=== PATIENT | female | born 1965 | race Asian ===

== ENCOUNTER 2017-11-27 12:57 | Outpatient (CLI) | payer BC | END 2017-11-27 12:58 | disposition home or self-care (01) | LOC: BICMAMMO 12:57 | PROVIDERS: ATTEND Internal Medicine | DX: Z12.31 Encounter for screening mammogram for malignant neoplasm of breast (principal); Z80.3 Family history of malignant neoplasm of breast | CPT/HCPCS: 77063; 77067 ==

== ENCOUNTER 2018-02-21 10:08 | Outpatient (CLI) | payer BC ==
--- NOTE | 2018-02-21 11:18 | BD ---
DEXA BONE DENSITOMETRY: (Dual energy X-ray Absorptiometry) DATE: 02/21/18 HISTORY: 52-year-old postmenopausal female for follow-up age-related osteoporosis screening examination. Age of menopause: 38 years. Weight: 115 lbs. Height: 65. COMPARISON: Most recent previous: 01/30/16. Baseline: 10/10/11. FINDINGS: The bone mineral density (BMD) is given in grams per square centimeter (g/cm2): LUMBAR SPINE: BMD(g/cm2) T-score Z-score L1: 0.695 -2.7 -1.9 L2: 0.726 -2.7 -1.9 L3: 0.736 -3.2 -2.2 L4: 0.699 -3.3 -2.4 Total: 0.714 -3.0 -2.1 Change in BMD compared to most recent previous DEXA: -8.7% Change in BMD compared to baseline DEXA: -0.9% HIP: Femoral neck: 0.652 -1.8 -0.9 Total: 0.780 -1.3 -0.8 Change in BMD compared to most recent previous DEXA: +2.5% Change in BMD compared to baseline DEXA: -2.9% FRAX WHO Fracture Risk Assessment Tool: 10 Year Fracture Risk * Major osteoporotic fracture: 2.7% Hip fracture: 0.3% Reported Risk Factors: [place](), Neck BMD=0.652, BMI=19.1 * Fracture probability is calculated for an untreated patient. Fracture probability may be lower if the patient has received treatment. IMPRESSION: 1. The mean bone mineral density of the lumbar spine is osteoporotic. Fracture risk is high. 2. The bone mineral density of the femoral neck is osteopenic. Fracture risk is increased. 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
== END 2018-02-21 10:09 | disposition home or self-care (01) ==
LOC: BICMAMMO 10:08
PROVIDERS: ATTEND Internal Medicine Rheumatology
DX: M81.0 Age-related osteoporosis without current pathological fracture (principal); M85.859 Other specified disorders of bone density and structure, unspecified thigh
CPT/HCPCS: 77080

== ENCOUNTER 2018-11-28 14:43 | Outpatient (CLI) | payer BC ==
--- NOTE | 2018-11-28 15:30 | MMO ---
Bilateral MAMMO Bilat Screen [facility]. CLINICAL HISTORY: Patient is 53 years old and is seen for screening. The patient has the following family history of breast cancer: maternal aunt. The patient has no personal history of cancer. VIEWS: The views performed were: bilateral craniocaudal with tomosynthesis and bilateral mediolateral oblique with tomosynthesis. FILMS COMPARED: The present examination has been compared to prior imaging studies performed at [facility] on 10/15/2013, 10/28/2015, 10/31/2016 and 11/27/2017. MAMMOGRAM FINDINGS: The breasts are heterogeneously dense, which could obscure a lesion on mammography. There are no suspicious masses, suspicious calcifications, or new areas of architectural distortion. IMPRESSION: THERE IS NO MAMMOGRAPHIC EVIDENCE OF MALIGNANCY. A ROUTINE FOLLOW-UP MAMMOGRAM IN 1 YEAR IS RECOMMENDED. THE RESULTS OF THIS EXAM WERE SENT TO THE PATIENT. ACR BI-RADS Category 1 - Negative MAMMOGRAPHY NOTE: 1. A negative mammogram report should not delay a biopsy if a dominant of clinically suspicious mass is present. 2. Approximately 10% to 15% of breast cancers are not detected by mammography. 3. Adenosis and dense breasts may obscure an underlying neoplasm. Reported by: EWA ZAVALA MD Electonically Signed: [id number]
== END 2018-11-28 14:44 | disposition home or self-care (01) ==
LOC: BICMAMMO 14:43
PROVIDERS: ATTEND Internal Medicine
DX: Z12.31 Encounter for screening mammogram for malignant neoplasm of breast (principal); Z80.3 Family history of malignant neoplasm of breast
CPT/HCPCS: 77063; 77067

== ENCOUNTER 2019-05-29 15:31 | Outpatient (CLI) | payer BC ==
--- NOTE | 2019-05-29 16:18 | BD ---
Exam: DEXA Bone Density 05/29/19 HISTORY: Postmenopausal screening for osteoporosis, osteoporosis. Lumbar Spine: BMD (g/cm2) T-SCORE Z-SCORE L1 0.759 -2.1 -1.2 L2 0.738 -2.6 -1.7 L3 0.782 -2.7 -1.7 L4 0.765 -2.7 -1.7 L1-L4 0.761 -2.6 -1.6 Femoral Neck: 0.682 -2.0 -1.0 Total Femur: 0.772 -1.4 -0.8 Impression: Osteoporosis. POS: [facility]
== END 2019-05-29 15:32 | disposition home or self-care (01) ==
LOC: BICMAMMO 15:31
PROVIDERS: ATTEND Internal Medicine Rheumatology
DX: M81.0 Age-related osteoporosis without current pathological fracture (principal)
CPT/HCPCS: 77080

== ENCOUNTER 2019-12-03 11:09 | Outpatient (CLI) | payer BC ==
--- NOTE | 2019-12-03 13:47 | MMO ---
Bilateral MAMMO Bilat Screen [facility]. CLINICAL HISTORY: Patient is 54 years old and is seen for screening. The patient has the following family history of breast cancer: maternal aunt. The patient has no personal history of cancer. VIEWS: The views performed were: bilateral craniocaudal with tomosynthesis and bilateral mediolateral oblique with tomosynthesis. FILMS COMPARED: The present examination has been compared to prior imaging studies performed at [facility] on 10/28/2015, 10/31/2016, 11/27/2017 and 11/28/2018. This study has been interpreted with the assistance of computer-aided detection. MAMMOGRAM FINDINGS: The breasts are heterogeneously dense, which could obscure a lesion on mammography. There are no suspicious masses, suspicious calcifications, or new areas of architectural distortion. IMPRESSION: THERE IS NO MAMMOGRAPHIC EVIDENCE OF MALIGNANCY. A ROUTINE FOLLOW-UP MAMMOGRAM IN 1 YEAR IS RECOMMENDED. THE RESULTS OF THIS EXAM WERE SENT TO THE PATIENT. ACR BI-RADS Category 1 - Negative MAMMOGRAPHY NOTE: 1. A negative mammogram report should not delay a biopsy if a dominant of clinically suspicious mass is present. 2. Approximately 10% to 15% of breast cancers are not detected by mammography. 3. Adenosis and dense breasts may obscure an underlying neoplasm. Reported by: YINKA ORELLANA MD Electonically Signed: [id number]
== END 2019-12-03 11:10 | disposition home or self-care (01) ==
LOC: BICMAMMO 11:09
PROVIDERS: ATTEND Internal Medicine
DX: Z12.31 Encounter for screening mammogram for malignant neoplasm of breast (principal); Z80.3 Family history of malignant neoplasm of breast
CPT/HCPCS: 77063; 77067

== ENCOUNTER 2020-07-13 10:07 | Outpatient (CLI) | payer BC ==
--- NOTE | 2020-07-13 12:41 | BD ---
EXAM: DEXA bone density examination HISTORY: 54-year-old postmenopausal female for screening COMPARISON: 05/29/2019 FINDINGS: L1--bone mineral density 0.768 g/sq cm; T score -2.0 L2--bone mineral density 0.739 g/sq cm; T score -2.6 L3--bone mineral density 0.754 g/sq cm; T score -3.0 L4--bone mineral density 0.810 g/sq cm; T score -2.3 Total L1-L4--bone mineral density 0.767 g/sq cm; T score -2.5 Left femoral neck--bone mineral density0.657; T score -1.7 Total proximal left femur--bone mineral density 0.838; T score -0.9 IMPRESSION: Osteoporosis. When compared to the prior examination, the bone density in the hip has inc reased approximately 8.5% and the bone density in the spine has not changed significantly.
== END 2020-07-13 10:08 | disposition home or self-care (01) ==
LOC: BICMAMMO 10:07
PROVIDERS: ATTEND Internal Medicine Rheumatology
DX: M81.0 Age-related osteoporosis without current pathological fracture (principal)
CPT/HCPCS: 77080

== ENCOUNTER 2021-02-06 11:20 | Outpatient (CLI) | payer BC | END 2021-02-06 11:21 | disposition home or self-care (01) | LOC: BICMAMMO 11:20 | PROVIDERS: ATTEND Obstetrics & Gynecology | DX: Z12.31 Encounter for screening mammogram for malignant neoplasm of breast (principal); Z80.3 Family history of malignant neoplasm of breast | CPT/HCPCS: 77063; 77067 ==

== ENCOUNTER 2022-03-01 15:53 | Outpatient (CLI) | payer BC | END 2022-03-01 15:54 | disposition home or self-care (01) | LOC: SCSRAD 15:53 | PROVIDERS: ATTEND Internal Medicine Rheumatology | DX: M54.50 Low back pain, unspecified (principal); M81.0 Age-related osteoporosis without current pathological fracture; M41.9 Scoliosis, unspecified; M47.816 Spondylosis without myelopathy or radiculopathy, lumbar region | CPT/HCPCS: 72110 ==

== ENCOUNTER 2022-08-22 15:06 | Outpatient (CLI) | payer BC | END 2022-08-22 15:07 | disposition home or self-care (01) | LOC: BICMAMMO 15:06 | PROVIDERS: ATTEND Internal Medicine Rheumatology | DX: M81.0 Age-related osteoporosis without current pathological fracture (principal); M85.851 Other specified disorders of bone density and structure, right thigh; M85.852 Other specified disorders of bone density and structure, left thigh | CPT/HCPCS: 77080 ==

== ENCOUNTER 2023-11-06 15:01 | Outpatient (CLI) | payer BC | END 2023-11-06 15:02 | disposition home or self-care (01) | LOC: BICMAMMO 15:01 | PROVIDERS: ATTEND Internal Medicine Rheumatology | DX: M81.0 Age-related osteoporosis without current pathological fracture (principal); M85.851 Other specified disorders of bone density and structure, right thigh; M85.852 Other specified disorders of bone density and structure, left thigh | CPT/HCPCS: 77080 ==

== ENCOUNTER 2024-04-09 10:02 | Outpatient (CLI) | payer BC | END 2024-04-09 10:03 | disposition home or self-care (01) | LOC: BICMAMMO 10:02 | PROVIDERS: ATTEND Internal Medicine | DX: N64.89 Other specified disorders of breast (principal) | CPT/HCPCS: G0279 ==

== ENCOUNTER 2024-12-23 14:03 | Outpatient (CLI) | payer BC | END 2024-12-23 14:04 | disposition home or self-care (01) | LOC: BICMAMMO 14:03 | PROVIDERS: ATTEND Internal Medicine Rheumatology | DX: M81.0 Age-related osteoporosis without current pathological fracture (principal); M85.851 Other specified disorders of bone density and structure, right thigh; M85.852 Other specified disorders of bone density and structure, left thigh | CPT/HCPCS: 77080 ==

== ENCOUNTER 2025-04-12 10:20 | Outpatient (CLI) | payer BC | END 2025-04-12 10:21 | disposition home or self-care (01) | LOC: BICMAMMO 10:20 | PROVIDERS: ATTEND Internal Medicine | DX: Z12.31 Encounter for screening mammogram for malignant neoplasm of breast (principal); R92.333 Mammographic heterogeneous density, bilateral breasts; Z80.3 Family history of malignant neoplasm of breast | CPT/HCPCS: 77063; 77067 ==